=== PATIENT | female | born 1985 | race Hispanic/Latino ===

== ENCOUNTER → 2018-01-15 | Outpatient (CLI) | payer BC, OTHER ==
--- NOTE | 2018-01-16 08:33 | NM ---
EXAM DESCRIPTION: Hepatobiliar w/CCK CLINICAL HISTORY: Epigastric abdominal pain. COMPARISON: None available TECHNIQUE: Routine hepatobiliary scan was performed following intravenous administration of 7.7 mCi technetium 99m mebrofenin. 8 ounces of fatty meal was used to stimulate gallbladder contraction. FINDINGS: Hepatobiliary scan shows prompt accumulation of the radiopharmaceutical within the liver and excretion into the biliary ductal system, gallbladder, and small bowel. Gallbladder ejection fraction is assessed over 30 min following fatty meal. Gallbladder stimulation with fatty meal produced cramping symptoms similar to when she eats. Gallbladder ejection fraction measured at 19% by 30 minutes and 21% by 39 minutes. IMPRESSION: 1. Visualization of the gallbladder essentially excludes acute cholecystitis. 2. Decreased gallbladder ejection fraction at 19% at 30 minutes into the examination (normal range is greater than 35%). In the appropriate clinical settings, this would be compatible with gallbladder dysfunction/chronic cholecystitis. 3. Gallbladder stimulation with fatty meal produced cramping symptoms similar to when she eats. Electronically signed by: Cam Mendez MD 01/16/2018 8:32 AM COMFORT ADVISOR
== END ==
LOC: NM 10:58
PROVIDERS: ATTEND General Practice
DX: R10.13 Epigastric pain (principal); R93.2 Abnormal findings on diagnostic imaging of liver and biliary tract
CPT/HCPCS: 78227; A9537

== ENCOUNTER → 2020-12-24 | Outpatient (CLI) | payer BC ==
--- NOTE | 2020-12-24 17:58 | CT ---
EXAM DESCRIPTION: CT ABDOMEN WITH CONTRAST CLINICAL HISTORY: RUQ PAIN COMPARISON: None Available. TECHNIQUE: CT of the abdomen is performed during IV bolus administration of 100 mL Isovue 300. No oral contrast. FINDINGS: The lung bases are clear of infiltrate. Heart size is normal. Breast tissue appears symmetrical. Liver is normal in size and parenchymal appearance. No calcified stones in the gallbladder. No gallbladder overdistention, wall thickening or pericholecystic inflammatory change. Small right renal cyst measures 8 mm. Spleen, pancreas, and kidneys are otherwise unremarkable. The stomach is empty but otherwise unremarkable. No inflammation around the pancreas. There is no lymphadenopathy, inflammation, or free fluid observed. Appendix is not seen and may be surgically absent. Coronal and sagittal reformatted images confirm the findings. IMPRESSION: No acute upper abdominal process. This exam was performed according to our departmental dose-optimization program, which includes automated exposure control, adjustment of the mA and/or kV according to patient size and/or use of iterative reconstruction technique. Electronically signed by: Vahe Winston MD 12/24/2020 5:57 PM [facility]
== END ==
LOC: CT 08:05
PROVIDERS: ATTEND General Practice
DX: R10.11 Right upper quadrant pain (principal)